=== PATIENT | female | born 1965 | race Caucasian/White ===

== ENCOUNTER → 2017-11-08 | Outpatient (CLI) | payer OTHER ==
[~2017-11-08] MED LIST: CIPRO500 MG PO; COLACE100 MG PO
== END | disposition home or self-care (01) ==
LOC: NUC 09:24
DX: M47.896 Other spondylosis, lumbar region (principal); M19.072 Primary osteoarthritis, left ankle and foot; Z89.611 Acquired absence of right leg above knee; R93.7 Abnormal findings on diagnostic imaging of other parts of musculoskeletal system; M19.90 Unspecified osteoarthritis, unspecified site; B99.9 Unspecified infectious disease; Z98.890 Other specified postprocedural states
CPT/HCPCS: 78306; A9503